=== PATIENT | female | born 1985 | race Caucasian/White ===

== ENCOUNTER 2016-06-28 09:57 | Inpatient (IN) | payer MEDICAID, SELFPAY ==
[~2016-06-28] VITALS: Ht 167.6 cm; Wt 67.3 kg
[2016-06-28] MEDS ORDERED: LORazepam 1MG TABLET PO ONE (10:30)
[2016-06-28 10:41] LABS: DAU SCREEN DISCLAIMER
[2016-06-28] MEDS ORDERED: LORazepam 1MG TABLET ONE ×2 (10:42→14:26)
[2016-06-28 10:51] LABS: PATH.CAST-FLAG NOT PRESENT; SPERM-FLAG NOT PRESENT; SRC-FLAG NOT PRESENT; XTAL-FLAG NOT PRESENT; YLC-FLAG NOT PRESENT
[2016-06-28 11:10] LABS: BLOOD UREA NITROGEN 17 mg/dL (7-18)
[2016-06-28 11:16] LABS: ASPARTATE AMINO TRANSFERASE 9 U/L (15-37)
[2016-06-28 11:19] LABS: ACETAMINOPHEN < 2 mcg/mL (10-30)
[2016-06-28] MEDS ORDERED: HYDROcodone/APAP 5/325 TABLET ONE ×2 (14:26→16:12)
[2016-06-28] MEDS: HYDROcodone/APAP 5/325 TABLET PO PRN ×3 (14:27→20:44)
[2016-06-28] MEDS: LORazepam 1MG TABLET PO PRN ×3 (14:27→19:57)
[2016-06-28] MEDS ORDERED: ONDANSETRON ODT 4 MG PO PRN (14:30)
[2016-06-28] MEDS ORDERED: ACETAMINOPHEN 325 MG TABLET PO PRN (14:30)
[2016-06-28] MEDS ORDERED: TRAZODONE 50MG TABLET PO PRN (14:30)
[2016-06-28] MEDS ORDERED: LOPERAMIDE 1 MG/5 ML, 10ML UDC PO PRN (15:30)
[2016-06-28] MEDS: NICOTINE 7 MG/24 HR PATCH.TD24 TD SCH (16:08)
[2016-06-28 18:02] VITALS: BP 105/70
[2016-06-28 18:40] VITALS: BP 109/69
[2016-06-28] MEDS ORDERED: QUETIAPINE 100MG TABLET PO ONE (20:00)
[2016-06-29 02:46] VITALS: BP 119/76
[2016-06-29] MEDS: LORazepam 1MG TABLET PO PRN ×5 (07:52→20:22)
[2016-06-29] MEDS: HYDROcodone/APAP 5/325 TABLET PO PRN ×3 (07:52→17:44)
[2016-06-29 08:16] VITALS: BP 109/68
[2016-06-29 09:07] LABS: BLOOD UREA NITROGEN 16 mg/dL (7-18)
[2016-06-29] MEDS: IBUPROFEN 200 MG TABLET PO PRN ×2 (11:03→16:54)
[2016-06-29] MEDS ORDERED: TEMAZEPAM 30 MG CAPSULE PO PRN (12:30)
[2016-06-29] MEDS ORDERED: POLYETHYLENE GLYCOL 17 GM PACKET PO PRN (13:00)
[2016-06-29 13:53] VITALS: BP 106/72
[2016-06-29] MEDS: NICOTINE 7 MG/24 HR PATCH.TD24 TD SCH (15:24)
[2016-06-29 19:34] VITALS: BP 108/69
[2016-06-29] MEDS ORDERED: DOCUSATE 100 MG CAPSULE PO SCH ×2 (21:00)
== END 2016-06-29 20:30 | DRG 880 ==
LOC: ED 10:51 → INTOOBSV 12:47 → EDIP 12:47 → OBSVTOIN 17:20 → 3NE 17:45 → 3E 06-29 13:50
PROVIDERS: ADMIT Internal Medicine; ATTEND Internal Medicine
DX: R45.851 Suicidal ideations (principal); F17.210 Nicotine dependence, cigarettes, uncomplicated; F32.9 Major depressive disorder, single episode, unspecified; E05.20 Thyrotoxicosis with toxic multinodular goiter without thyrotoxic crisis or storm; F11.10 Opioid abuse, uncomplicated; F12.10 Cannabis abuse, uncomplicated; F41.9 Anxiety disorder, unspecified; Z91.5 Personal history of self-harm; Z82.49 Family history of ischemic heart disease and other diseases of the circulatory system; Z80.9 Family history of malignant neoplasm, unspecified; Z59.0 Homelessness; Z71.6 Tobacco abuse counseling
CPT/HCPCS: 36415; 80048; 80053; 80307; 80329; 81001; 84439; 84443; 84481; 84703; 85025; 87086; 93005; 99285; G0378; G0480